=== PATIENT | female | born 1985 | race Caucasian/White ===

== ENCOUNTER 2018-04-21 08:31 | Emergency (ER) | payer OTHER ==
[~2018-04-21] VITALS: Ht 165.1 cm; Wt 99.0 kg
[2018-04-21] MEDS ORDERED: SODIUM CHLORIDE 0.9% 1,000 ML IV ONE (09:19)
[2018-04-21] MEDS ORDERED: MORPHINE SULFATE 4 MG/ML CPJ (NOT FOR IM USE) IV ONE (09:30)
[2018-04-21] MEDS ORDERED: ONDANSETRON HCL 4MG/2ML INJ IV ONE (09:30)
[2018-04-21 09:48] LABS: BASOPHILS % 0.6 % (0.0-2.0); HEMATOCRIT. 30.6 % (36.0-48.0); HEMOGLOBIN. 9.2 g/dL (12.0-16.0); MEAN CORPUSCULAR HEMOGLOBIN 19.2 pg (28.0-32.0); MEAN CORPUSCULAR VOLUME 64.3 fL (81.0-99.0); MEAN PLATELET VOLUME 7.7 fl (7.4-10.4); MONOCYTES % 6.4 % (2.0-8.0); PLATELET 458 x1000/uL (130-400); RED BLOOD CELL COUNT 4.76 mill/uL (4.2-5.4); RED CELL DISTRIBUTION WIDTH 19.1 % (11.6-14.6)
[2018-04-21 09:56] LABS: CHLORIDE 111 mEq/L (98-107)
[2018-04-21 09:58] LABS: INR 1.1; PARTIAL THROMBOPLASTIN TIME 27.1 sec (23.4-31.0); PROTHROMBIN TIME 10.7 sec (9.1-11.1)
[2018-04-21 10:01] LABS: HCG SCREEN NEGATIVE
[2018-04-21 10:32] LABS: PLATELET ESTIMATE INCREASED
[2018-04-21] MEDS ORDERED: IOHEXOL-300 100 ML BOTTLE ONE (11:28)
[2018-04-21] MEDS ORDERED: KETOROLAC 30MG/ML VIAL IV ONE (12:00)
[2018-04-21 13:07] VITALS: BP 142/80
== END 2018-04-21 13:08 | disposition home or self-care (01) ==
LOC: ER 08:31
DX: S16.1XXA Strain of muscle, fascia and tendon at neck level, initial encounter (principal); S93.401A Sprain of unspecified ligament of right ankle, initial encounter; S30.1XXA Contusion of abdominal wall, initial encounter; S40.021A Contusion of right upper arm, initial encounter; V49.9XXA Car occupant (driver) (passenger) injured in unspecified traffic accident, initial encounter; Y93.89 Activity, other specified; Y92.89 Other specified places as the place of occurrence of the external cause; Y99.8 Other external cause status
CPT/HCPCS: 36415; 71045; 72125; 73030; 73060; 73610; 74177; 80053; 81025; 84703; 85025; 85610; 85730; 96374; 96375; 99284; J1885; J2270; J2405; J7030; Q9967